=== PATIENT | male | born 1945 | race Caucasian/White ===

== ENCOUNTER 2022-11-29 00:44 | Day surgery (SDC) | payer MEDICARE, MEDICAID, SELFPAY ==
--- NOTE | 2022-11-21 07:54 | P.HP_ITS ---
History of Present Illness History of Present Illness Consent: Risks, benefits, and alternatives have been discussed and questions answered. Patient agrees to proceed with procedure. Chief complaint: Overactive Bladder Narrative: Clarence Kellogg is a 77 year old male Who is known to have progressively severe overactive bladder with urge incontinence. He has failed multiple trials of medical management and opted to manage with an indwelling catheter. He has tri ed a urethral catheter but it is uncomfortable and he now elects for placement of a suprapubic catheter. He is aware the risk including, but not limited to, bowel injury, persistent urinary incontinence hematuria. Review of Systems Review of Systems: All systems reviewed & are unremarkable except as noted in HPI and below Meds Home Medications and Allergies Allergies Allergy/AdvReac Type Severity Reaction Status Date / Time No Known Allergies Verified 05/25/10 15:26 Exam Const: General: no acute distress Resp: Effort & Inspection: normal respiratory effort GI: Inspection: non-distended GI Palp: No abdominal tenderness and No Guarding due to palpation present (GI) Auscultation: normal bowel sounds Assessment and Plan Assessment and plan (1) Urge incontinence of urine: Code(s): N39.41 - Urge incontinence Status: Acute Assessment and Plan: * Placement of suprapubic catheter
--- NOTE | 2022-11-28 10:00 | WPDANESEPPF ---
Anes - Initial Pre Proc Eval Procedure: Operation Date: 11/29/22 10:00 Proposed Procedures p Cystoscopy, Insertion Suprapubic Catheter - Sreekanth Vasquez MD Date/Time: 11/28/22 10:00 Surgeon: Sreekanth Vasquez MD Pre Op Diagnosis: Overactive Bladder Patient Data Age: 77 Gender: M Height: Weight: Allergies Allergy/AdvReac Type Severity Reaction Status Date / Time No Known Allergies Verified 11/29/22 08:52 Home Medications Medication Instructions Recorded Confirmed Type Sodium Chloride Granules 1 g PO BID 11/28/22 History acetaminophen 325 mg tablet 650 mg PO Q4H PRN Pain 11/28/22 11/28/22 History (Tylenol) albuterol sulfate 90 mcg/actuation 2 puff inhalation QID 11/28/22 11/28/22 History aerosol inhaler (Proventil HFA) aripiprazole 5 mg tablet 5 mg PO DAILY 11/28/22 11/28/22 History aspirin 81 mg chewable tablet 81 mg PO DAILY 11/28/22 11/28/22 History atorvastatin 10 mg tablet 10 mg PO HS 11/28/22 11/28/22 History carvedilol 12.5 mg tablet 12.5 mg PO BID 11/28/22 11/28/22 History diclofenac sodium 3 % topical gel 1 applic topical QID 11/28/22 11/28/22 History divalproex 125 mg tablet,delayed 125 mg PO DAILY 11/28/22 11/28/22 History release empagliflozin 10 mg tablet 10 mg PO DAILY 11/28/22 11/28/22 History (Jardiance) hydrocodone 5 mg-acetaminophen 325 1 tablet PO Q6H PRN Pain 11/28/22 11/28/22 History mg tablet indapamide 1.25 mg tablet 1.25 mg PO DAILY 11/28/22 11/28/22 History insulin aspart U-100 100 unit/mL 1 sliding scale dose subcut 11/28/22 11/28/22 History (3 mL) subcutaneous pen (Novolog USEASDIRECTD FlexPen U-100 Insulin aspart) insulin glargine 100 unit/mL (3 20 unit subcut HS 11/28/22 11/28/22 History mL) subcutaneous pen (Lantus Solostar U-100 Insulin) lisinopril 5 mg tablet 5 mg PO DAILY 11/28/22 11/28/22 History magnesium hydroxide 400 mg/5 mL 30 ml PO DAILY PRN Constipation 11/28/22 11/28/22 History oral suspension (Milk of Magnesia) magnesium oxide 400 mg PO DAILY 11/28/22 11/28/22 History mirabegron 50 mg tablet,extended 50 mg PO DAILY 11/28/22 11/28/22 History release 24 hr (Myrbetriq) nitroglycerin 0.4 mg sublingual 0.4 mg sublingual Q5M PRN Chest 11/28/22 11/28/22 History tablet Pain omeprazole 40 mg capsule,delayed 40 mg PO DAILY 11/28/22 11/28/22 History release tramadol 50 mg tablet 50 mg PO Q6H PRN Pain 11/28/22 11/28/22 History trazodone 50 mg tablet 25 mg PO HS 11/28/22 11/28/22 History venlafaxine 75 mg tablet,extended 75 mg PO DAILY 11/28/22 11/28/22 History release 24 hr Patient hx anesthesia problems: none Family hx anesthesia problems: none Results Review: All pre-operative results and documents have been reviewed as part of the pre-operative evaluation. [facility] Past Medical History Medical History (Updated 11/29/22 @ 09:19 by Devante Engle MD) Chronic GERD CVA (cerebral vascular accident) Depression Diabetes HTN (hypertension) Hyperlipidemia Social History Social History Smoking packs per day: 1 Smoking cigarettes per day: 20.0 Years smoked: 45 Smoking pack-years: 45.00 Smoking status: Former smoker Tobacco type: cigarettes Smoking end date: 09/23/06 Alcohol intake: never Substance use: never Substance use type: does not use Living arrangements: intermediate Additional living arrangements comments: CURRENTLY AT [facility] - WILL BE GOING BACK TO HOME AFTER SURGERY Spiritual care concerns: No Anes - Eval Final PreProcedure Day of Procedure 11/28/22 10:00 Patient weight: obese Heart: regular rate and rhythm Lungs: clear to auscultation and normal air movement Airway: Mallampati scale class II Neurological: alert and oriented Last oral intake: >/= 8 hours ASA classification: III Emergent: no Anesthetic plan: proceed Anesthesia type and monitoring: general GIVS Results Review: All pre-operative results and documents have been reviewed as p
[2022-11-28 10:08] VITALS: BMI 27.8
--- NOTE | 2022-11-28 10:50 | PC.NURSE ---
Report to the Outpatient Waiting Room AT [facility], entrance under the green pavilion located off [facility], at time 8:00 on date 11/29/22. Planned Procedure Time: 10:00. Time changes happen often and if your time is changed the preop area will call you the afternoon before. - You and your visitor will be asked to self-screen and do not enter if you have any COVID symptoms. - Only one visitor is requested with a max of two and NO children visitors are allowed at this time. - The patient visitor may be requested to leave or wait in car when not with patient due to distancing restrictions. - A mask is optional within the hospital at this time. Patients may have clear liquids (water, carbonated beverages, clear teas, apple juice) until 3 hours prior to surgery (7:00) with a maximum of 20 ounces. - No food from midnight until time of surgery Take the following medications with a SIP of water the morning of surgery: ARIPIPRAZOLE, CARVEDILOLM DIVALPROEX, VENLAFAXINE, INHALER, PAIN PILL IF NEEDED DO NOT STOP ANY OF YOUR OTHER PRESCRIPTION MEDICATIONS PRIOR TO SURGERY EXCEPT THE FOLLOWING Medications to discontinue per physician: VITAMINS/SUPPLEMENTS Date to take last dose: NO MORE UNTIL AFTER SURGERY FOLLOW INSTRUCTIONS FROM DR. KOO REGARDING ASPIRIN AND DICLOFENAC GEL Please no make-up, nail qatari, hairspray, perfume, deodorant, or body powder the day of surgery. No jewelry (including any body piercings) or valuables the day of surgery, leave them at home. Please take a shower or bath the night before, or the morning of, surgery with an antibacterial soap. Wear comfortable, loose fitting clothing. - Jewelry must be removed prior to entering the operating room. Rings and piercings that are not removed may be cut off. - The hospital will not accept responsibility for valuables. - Please leave all valuables, including medications, at home the day of surgery. If you are going home after surgery, a licensed courtesy car driver must drive you home. - NO public transportation without another adult if you receive anesthesia. - We recommend that an adult stay with you for 24 hours following discharge. - We also recommend that you do not drive, make important decision, drink alcoholic beverages, or take any drugs that were not prescribed by your health care provider for at least 24 hours after your discharge time. Follow any additional instructions given to you from your surgeon. If you or anyone in your household have experienced Covid symptoms in the past week, please notify your surgeon or the nurse liaison at the phone number below for possible testing. Telephone instructions given to ALISIA Vargas DESHAWN and asked if any additional questions and then verbalized understanding AND ALSO FAXED TO [facility]. Patient advised to call surgeon office or pre surgery nurse liaison [phone] if any additional questions.
[2022-11-29] VITALS (8 sets, daily range): BP systolic 88–121; BP diastolic 45–72; PULSE 70–74; RESP 10–16; TEMP 36.4; O2SAT 95–99
--- NOTE | 2022-11-29 06:43 | WPDHPUPDATE1 ---
History and Physical Update Update Date/Time: 11/29/22 06:43 History and Physical has been reviewed, including an updated exam of the patient. There are NO changes in the patient's condition. Risks, benefits, and alternatives have been discussed and questions answered. Patient agrees to proceed with procedure.
--- NOTE | 2022-11-29 07:32 | ECG_ITS ---
Measurements Intervals Clubb Rate: 78 P: 70 PA: 160 QRS: 148 QRSD: 134 T: 27 QT: 421 QTc: 481 Interpretive Statements ELECTRONIC ATRIAL PACEMAKER WITH INHIBITION ELECTRONIC VENTRICULAR PACEMAKER NO FURTHER INTERPRETATION IS POSSIBLE ATYPICAL ECG NO PREVIOUS ECG AVAILABLE FOR COMPARISON Electronically Signed On 11-29-2022 9:49:11 [employer]CHNICIAN by Sid Gold D.O.
[2022-11-29] MEDS: LACTATED RINGERS 1,000 ML 30 ML IV CONT (08:54)
[2022-11-29 09:08] LABS: Anion Gap 8 mmol/L (8-16); Blood Urea Nitrogen 32 mg/dL (9-20); Calcium 8.5 mg/dL (8.4-10.2); Carbon Dioxide 31 mmol/L (22-30); Chloride 97 mmol/L (98-107); Estimated CRCL calculation 39 ml/min; Estimated Glomerular Filt Rate 49; Glucose 135 mg/dL (65-110); Potassium 4.4 mmol/L (3.4-5.0); Sodium 136 mmol/L (137-145)
[2022-11-29 09:16] LABS: Glucose Point of Care 120 mg/dl (65-105)
[2022-11-29 09:29] LABS: Valproic Acid 17.8 ug/mL (50-120)
[2022-11-29] MEDS: ceFAZolin 2 GM/D5W 50 ML 2 GM/50 ML BAG IVPB (09:40)
[2022-11-29] MEDS: LIDOCAINE HCL 2% GEL UROJET 10 ML PKG MUCOUS MEM (10:07)
[2022-11-29] MEDS: LIDOCAINE HCL 1% LOCAL INJ 20 ML VIAL 10 ML INFILTRATE (10:08)
--- NOTE | 2022-11-29 10:27 | W.PM.PROC2 ---
Procedure Note - Detailed Date of Procedure 11/29/22 Pre-op Diagnosis Overactive Bladder Post-op Diagnosis Same Procedure Performed Cystoscopy, placement s/p catheter Surgeon Sreekanth Vasquez MD Anesthesia MAC Description of Procedure Patient is brought to the operative suite where he has prepped and draped in routine sterile fashion while in a supine position. Cystoscopy is undertaken with a 16F flexible cystoscope. He has no urethral strictures with moderate lateral lobe hyperplasia of the prostate. Bladder mucosa is normal with only minimal hyperemia in the posterior wall consistent with catheter cystitis. There is no intravesical foreign body or neoplasm. I filled his bladder with saline and placed a spinal needle through the dome of the bladder 0.35 superstiff wire was advanced through that and grasped with the cystoscope. I dilated the suprapubic tract with Amplatz dilators to from 8 F to 20F. I then placed an 16F Councill tip catheter through the dome. The suprapubic catheter secured with a 3 O nylon. Scopes and wires removed. Blood loss was approximately 5 cc. Drains Yes Packing No Pathology None sent Complications No immediate complications
[2022-11-29 10:40] LABS: Glucose Point of Care 128 mg/dl (65-105)
[2022-11-29] MEDS: fentaNYL CITRATE INJ (*CRX) 100 MCG/2 ML VIAL 25 MCG IV PUSH ×2 (11:50→11:55)
--- NOTE | 2022-11-29 13:52 | SUR.PHASEII ---
1230: Dr. Vasquez contacted and spoke to patient and family before discharge. Since the clamp on our catheter bag is difficult to operate, Dr. Vasquez asked us to get a different bag from his office. A new, user friendly bag was given to spouse and demonstrated how to operate prior to discharge.
== END 2022-11-29 12:40 | disposition home or self-care (01) ==
PROVIDERS: Anesthesiology; PCP Pediatrics; Visit Provider Urology
PROC: 0T9B30Z Drainage of Bladder with Drainage Device, Percutaneous Approach (ICD-10-PCS; CPT 51102; principal; 2022-11-29 10:00)
DX: N32.81 Overactive bladder (principal); N39.41 Urge incontinence; N40.0 Benign prostatic hyperplasia without lower urinary tract symptoms; E11.9 Type 2 diabetes mellitus without complications; I10 Essential (primary) hypertension; E78.5 Hyperlipidemia, unspecified; K21.9 Gastro-esophageal reflux disease without esophagitis; F32.A Depression, unspecified; Z86.73 Personal history of transient ischemic attack (TIA), and cerebral infarction without residual deficits; Z87.891 Personal history of nicotine dependence; E66.9 Obesity, unspecified; Z68.29 Body mass index [BMI] 29.0-29.9, adult; Z79.51 Long term (current) use of inhaled steroids; Z79.82 Long term (current) use of aspirin; Z79.84 Long term (current) use of oral hypoglycemic drugs; Z79.891 Long term (current) use of opiate analgesic
CPT/HCPCS: 51040; 36415; 80048; 80164; 82948; 93005; C1726; C1769; J0690; J2704; J3010; J7120